=== PATIENT | male | born 1955 | race Caucasian/White ===

== ENCOUNTER 2016-05-17 08:53 | Emergency (ER) | payer MEDICARE ==
[2016-05-17 08:53] VITALS: BMI 30.5
[2016-05-17] MEDS ORDERED: NS 1,000 ML IV ONE (09:44)
[2016-05-17] MEDS ORDERED: ONDANSETRON HCL 4 MG/2 ML VIAL IV ONE (09:44)
[2016-05-17] MEDS ORDERED: SODIUM CHLORIDE 0.9% 10 ML FLUSH FLUSH PRN (09:44)
[2016-05-17] MEDS ORDERED: HYDROmorphone 1 MG INJECTION IV ONE (09:44)
--- NOTE | 2016-05-17 09:46 | EDPRACDOC ---
- General Information Chief Complaint: Male Urogenital Problems Stated Complaint: KIDNEY STONE? Time Seen by Provider: 05/17/16 09:39 Information Source: Patient Mode Of Arrival: Car Home Medications: Home Medications Gabapentin [Neurontin] 600 mg PO QID 03/06/13 Metoprolol Tartrate [Lopressor] 25 mg PO BID 03/06/13 Pitavastatin Calcium [Livalo] 4 mg PO DAILY 03/06/13 Clopidogrel Bisulfate [Plavix] 75 mg PO DAILY 06/04/15 Duloxetine [Cymbalta] 60 mg PO BID 06/04/15 Levothyroxine Sodium [Synthroid] 100 mcg PO DAILY 06/04/15 Ondansetron HCl [Zofran] 4 mg PO TID PRN 08/27/15 Baclofen 10 mg PO BID PRN 09/10/15 ClonazePAM [Klonopin] 0.5 mg PO BID PRN 09/10/15 Tamsulosin HCl [Flomax] 0.4 mg PO BID 09/10/15 Acetaminophen [Tylenol] 650 mg PO QID PRN 09/12/15 Multivit-Min/FA/Lycopene/Lut [Centrum Silver Tablet] 1 tab PO DAILY 11/01/15 Omeprazole 40 mg PO DAILY PRN 11/01/15 Ondansetron HCl [Zofran] 4 mg PO Q8H PRN #15 tab 05/17/16 Oxycodone HCl [Oxycodone Immediate Release] 10 mg PO Q6H PRN 05/17/16 Tramadol HCl [Tramadol HCl ER] 200 mg PO DAILY 05/17/16 Allergies/Adverse Reactions: Allergies Allergy/AdvReac Type Severity Reaction Status Date / Time amitriptyline HCl Allergy See Verified 05/17/16 10:22 [From [facility]] Comments - History of Present Illness Onset: ongoing, worse for past 2 weeks HPI: Pt c/o L flank pain x 2 weeks with nausea. Pt states pain increased this morning and home meds aren't helping. States called Dr Ram but didn't get answer so came to ED. Denies fever, cp, sob, changes in bowel, rash. C/o decreased urination. Pain Location: Reports: Left, Flank Pain Radiates To: Reports: Other (LLQ) Pain Caused By: Reports: Spontaneous Relevant History: Reports: Urolithiasis Pain Severity: Reports: Moderate Pain Quality: Reports: Sharp, Stabbing Worsened By: Reports: Nothing Associated Signs and Symptoms: Reports: Abdominal Pain, Nausea ED Past Medical History - History Reviewed Yes Nurses notes reviewed and agree except as marked - Patient Medical History Neurological History: Reports: Cerebrovascular Accident (2012 RT SIDED WEAKNESS ) Cardiac History: Reports: Hypertension. Denies: Atrial Fibrillation Respiratory History: Reports: Asthma (TAKES INHALERS) GI/ History: Reports: Kidney Stones Musculoskeletal History: Reports: Arthritis Psychological History: Reports: Depression, Anxiety Systemic History: Reports: Hypothyroidism. Denies: Cancer, Anemia Surgical History: - Family Medical History Reports: Hypertension ([place]INGS. MOTHER), Diabetes ([place]), Cancer ([place], [place]), Cardiac Disorders ([place]). Denies: Stroke - Social Medical History Smoking Status: Former smoker ETOH: None Substance Abuse: None EDM Review of Systems - Review of Systems Constitutional: No Symptoms Reported. negative: Fever, Chills, Weakness, Fatigue, Loss of Appetite Respiratory: No Symptoms Reported. negative: Cough, Brassy Cough, Barky Cough, Shortness of Breath, Wheezing, Hemoptysis Cardiovascular: No Symptoms Reported. negative: Chest Pain, Palpitations, Syncope, Edema, Orthopnea, PND, Skin Mottling, Cyanosis Gastrointestinal: Nausea, Pain Genitourinary: Flank Pain Neurological: No Symptoms Reported. negative: Headache, Dizziness, Seizure, Numbness, Weakness, Speech Difficulty, Gait Difficulty Musculoskeletal: Back Integumentary: No Symptoms Reported. negative: Itching, Rash, Bruising, Wound Allergic/Immunologic: No Symptoms Reported. negative: Hives, Itching Hematologic: No Symptoms Reported. negative: Lymphadenopathy, Easy Bruising, Easy Bleeding Psychiatric: No Symptoms Reported. negative: Anxiety, Depression, Hallucinations, Insomnia, Suicidal - Physical Exam Constitutional: Alert Oriented to: Time, Person, Place Last recorded Vital Signs: Last Vital Signs Temp 97.6 F 05/17/16 08:55 Pulse 76 05/17/16 08:55 Resp 18 05/17/16 08:55 BP 156/86 05/17/16 08:55 Pulse Ox 94 05/17/16 08:55 Oxygen Pulse Oxygen Saturation 94 O2 Device Oxygen Flow Rate Fraction of Inspired Oxygen ( FIO2) - HEENT Head: Normal ( normocephalic) Eye Exam: Normal (PERRL, EOMI, Sclera white) Neck: Normal (FROM, trachea at midline) - Respiratory/Cardiovascular Respiratory: Normal - CTA (BBS clear to auscultation without adventitious sounds ) Cardiovascular: Normal (RRR without murmur, gallop or rub) - GI Auscultation: Normal (NABS) Palpation: Normal (Soft,No rebound or guarding, non distended) Tenderness: Mild, LLQ - Musculoskeletal Back: Normal (Non-Tender) Extremities: Normal (Normal tone, Pulses 2+ No cyanosis or edema, FROM) - Integumentary Skin: Pale Lymphatics: Normal (no adenopathy) - Neurologic Memory Impaired: Normal Motor Function: Normal (Normal tone, Pulses 2+ No cyanosis or edema, FROM) Mood Description: Normal Perception: Normal - Differential Diagnosis Musculoskeletal pain, Other (diverticulitis), Pyelonephritis, Strain, Urolithiasis, Urinary tract infection - Results 05/17/16 10:15 05/17/16 10:15 05/17/16 11:44 Laboratory Results - last 24 hr 05/17/16 05/17/16 05/17/16 10:15 10:15 11:00 WBC 6.9 RBC 5.22 Hgb 16.5 Hct 47.3 MCV 91 MCH 31.5 MCHC 34.8 RDW 13.1 Plt Count 169 MPV 7.9 Neut % (Auto) 78.3 H Lymph % (Auto) 13.0 L [place] % (Auto) 5.7 Eos % (Auto) 2.7 Baso % (Auto) 0.3 Absolute Neuts (auto) 5.38 Absolute Lymphs (auto) 0.90 Sodium 140 Potassium 4.9 Chloride 99 Carbon Dioxide 33 Anion Gap 13 BUN 16 Creatinine 1.00 Estimated GFR (MDRD) > 60 Glucose 104 H Calculated Osmolality 270 Lactic Acid 1.4 Calcium 9.4 Total Bilirubin 1.0 AST 26 ALT 28 Alkaline Phosphatase 68 Total Protein 6.7 Albumin 4.2 Urine Color Urine Clarity Urine pH Ur Specific [place] Urine Protein Urine Glucose (UA) Urine Ketones Urine Occult Blood Urine Nitrite Urine Bilirubin Urine Urobilinogen Ur Leukocyte Esterase Urine RBC Urine WBC Calcium Oxalate Crystal Urine Bacteria Hyaline Casts 05/17/16 11:07 WBC RBC Hgb Hct MCV MCH MCHC RDW Plt Count MPV Neut % (Auto) Lymph % (Auto) [place] % (Auto) Eos % (Auto) Baso % (Auto) Absolute Neuts (auto) Absolute Lymphs (auto) Sodium Potassium Chloride Carbon Dioxide Anion Gap BUN Creatinine Estimated GFR (MDRD) Glucose Calculated Osmolality Lactic Acid Calcium Total Bilirubin AST ALT Alkaline Phosphatase Total Protein Albumin Urine Color Yellow Urine Clarity Clear Urine pH 6.0 Ur Specific [place] 1.005 Urine Protein Neg Urine Glucose (UA) Neg Urine Ketones Neg Urine Occult Blood 1+ H Urine Nitrite Neg Urine Bilirubin Neg Urine Urobilinogen <2.0 Ur Leukocyte Esterase Neg Urine RBC 10-20 H Urine WBC 2-5 H Calcium Oxalate Crystal Occ Urine Bacteria Few Hyaline Casts 2-5 H - Diagnostic Imaging Abdomen Image interpreted by: Radiologist IMPRESSION: There are intrarenal calculi on the left. There is mild hydronephrosis and proximal ureterectasis on the left without calculus seen in the left ureter currently. Suspect recent calculus passage on the left. Pyelonephritis could present in this manner, however, and is a differential consideration. Fairly diffuse stool throughout colon. No bowel obstruction. No abscess. No periappendiceal region inflammation. Prostate appears rather prominent ; advise correlation with PSA. Decision Time to Discharge: 11:44 - Departure Disposition: Home Condition: Good Final Diagnosis: Renal colic on left side Instructions: Non-pharmacological Pain Management Therapies for Adults (GEN), Abdominal Pain (ED), Kidney Stones (ED) Education/Counseling Given To: Patient Education/Counseling Given Regarding: Diagnosis, Treatment, Follow Up Referrals: Marco Jimenez MD [Primary Care Provider] - One Week Endy Ram MD [Staff Physician] - One Week Prescriptions: New Ondansetron HCl [Zofran] 4 mg PO Q8H PRN #15 tab PRN Reason: Nausea/Vomiting No Action Pitavastatin Calcium [Livalo] 4 mg PO DAILY Gabapentin [Neurontin] 600 mg PO QID Metoprolol Tartrate [Lopressor] 25 mg PO BID Clopidogrel Bisulfate [Plavix] 75 mg PO DAILY Levothyroxine Sodium [Synthroid] 100 mcg PO DAILY Duloxetine [Cymbalta] 60 mg PO BID Ondansetron HCl [Zofran] 4 mg PO TID PRN PRN Reason: Nausea/Vomiting ClonazePAM [Klonopin] 0.5 mg PO BID PRN PRN Reason: ANXIETY/SLEEP Baclofen 10 mg PO BID PRN PRN Reason: HEADACHE/MUSCLE SPASM Tamsulosin HCl [Flomax] 0.4 mg PO BID Acetaminophen [Tylenol] 650 mg PO QID PRN PRN Reason: Pain Multivit-Min/FA/Lycopene/Lut [Centrum Silver Tablet] 1 tab PO DAILY Omeprazole 40 mg PO DAILY PRN PRN Reason: Acid Reflux Oxycodone HCl [Oxycodone Immediate Release] 10 mg PO Q6H PRN PRN Reason: Pain Tramadol HCl [Tramadol HCl ER] 200 mg PO DAILY Additional Instructions: Increase fluids. Follow up with Personal Urologist in 1-2 days. Return for worse or different symptoms.
[2016-05-17] MEDS ORDERED: NS 1,000 ML IV SCH (10:00)
[2016-05-17 10:31] LABS: AUTOMATED BASOPHIL 0.3 % (0-2); AUTOMATED EOSINOPHIL 2.7 % (0-5); AUTOMATED MONOCYTE 5.7 % (3-10); AUTOMATED NEUTROPHIL 78.3 % (45-76); MPV 7.9 fL (7.4-10.4)
[2016-05-17 10:40] LABS: BLOOD UREA NITROGEN 16 MG/DL (9-20); CALCIUM 9.4 MG/DL (8.4-10.2); CALCULATED OSMOLALITY 270 MOs/Kg (270-290); CHLORIDE 99 mEq/L (98-107); GLUCOSE 104 mg/dL (70-99); SODIUM LEVEL 140 mEq/L (137-146); TOTAL PROTEIN 6.7 G/DL (6.3-8.2)
--- NOTE | 2016-05-17 10:49 | DIRPT ---
CLINICAL DATA: Left flank pain with nausea for 2 weeks EXAM: CT ABDOMEN AND PELVIS WITHOUT CONTRAST TECHNIQUE: Multidetector CT imaging of the abdomen and pelvis was performed following the standard protocol without oral or intravenous contrast material administration. COMPARISON: November 01, 2015 and August 09, 2015 FINDINGS: Lower chest: There is mild bibasilar atelectatic change. Lung bases elsewhere are clear. There is moderate epicardial fat present. Hepatobiliary: No focal liver lesions are identified on this noncontrast enhanced study beyond a 3 mm probable cyst in the dome on the left. There is no appreciable gallbladder wall thickening. There is no demonstrable biliary duct dilatation. Pancreas: No pancreatic mass or inflammatory focus. Spleen: No splenic lesions are identified. Adrenals/Urinary Tract: Adrenals appear unremarkable bilaterally. On the right, there is no demonstrable mass. There is no right-sided renal hydronephrosis. There is no intrarenal or ureteral calculus on the right. On the left, there is no demonstrable mass. There is a calculus in the upper pole of the left kidney measuring 4 x 2 mm. There is a calculus in the inferior left renal pelvis measuring 10 x 8 mm. There is an adjacent calculus measuring 7 x 4 mm. There is also a 1 mm calculus slightly more inferior to the larger calculi in the inferior left renal pelvis regions. There is slight hydronephrosis and proximal ureterectasis on the left. No ureteral calculus is appreciable. Urinary bladder is midline with wall thickness within normal limits. Stomach/Bowel: There is fairly diffuse stool throughout the colon. There is no bowel wall or mesenteric thickening. No bowel obstruction. No free air or portal venous air. Vascular/Lymphatic: There is atherosclerotic calcification in the aorta and iliac arteries without aneurysm. No vascular lesions are appreciable on this noncontrast enhanced study. No adenopathy is appreciable in the abdomen or pelvis. Reproductive: Prostate appears mildly prominent. The seminal vesicles appear normal. There is no pelvic mass or pelvic fluid collection. Other: There is no periappendiceal region inflammation. No abscess or ascites is appreciable in the abdomen or pelvis. There is fat in the right and left inguinal ring regions, slightly more on the right than on the left. Musculoskeletal: There is degenerative change in the lumbar spine. There is vacuum phenomenon and marked disc space narrowing at L5-S1. There are no blastic or lytic bone lesions. There is a small benign appearing cystic area in the lateral left femoral head. No intramuscular or abdominal wall lesions are identified. IMPRESSION: There are intrarenal calculi on the left. There is mild hydronephrosis and proximal ureterectasis on the left without calculus seen in the left ureter currently. Suspect recent calculus passage on the left. Pyelonephritis could present in this manner, however, and is a differential consideration. Fairly diffuse stool throughout colon. No bowel obstruction. No abscess. No periappendiceal region inflammation. Prostate appears rather prominent ; advise correlation with PSA. Electronically Signed By: Sonido Holcomb III, M.D. On: 05/17/2016 10:47
[2016-05-17 11:23] LABS: CA OXALATE OCC; LEUKOCYTES/URINE NEG (NEGATIVE); NITRITE/URINE NEG (NEGATIVE); URINE OCCULT BLOOD 1+ (NEG/TRACE)
[2016-05-17 12:09] VITALS: BP 139/84; PULSE 60; TEMP 98.1
== END 2016-05-17 12:32 | disposition home or self-care (01) ==
LOC: ED 08:53
DX: N23 Unspecified renal colic (principal); I10 Essential (primary) hypertension; J45.909 Unspecified asthma, uncomplicated; E03.9 Hypothyroidism, unspecified; Z87.442 Personal history of urinary calculi; Z79.899 Other long term (current) drug therapy
CPT/HCPCS: 36415; 74176; 80053; 81001; 83605; 85025; 87086; 96361; 96374; 96375; 99283; J1170; J2405